=== PATIENT | female | born 1995 | race Caucasian/White ===

== ENCOUNTER 2018-11-05 11:40 | Emergency (ER) | payer SELFPAY, MEDICAID | END 2018-11-05 14:51 | disposition left against medical advice (07) | LOC: FTE 11:40 | DX: Z53.21 Procedure and treatment not carried out due to patient leaving prior to being seen by health care provider (principal) ==

== ENCOUNTER 2019-03-08 01:50 | Outpatient (CLI) | payer SELFPAY | END 2019-03-08 03:50 | disposition home or self-care (01) | LOC: OBT 01:50 → L-D 01:50 → OBT 03:50 | DX: O60.02 Preterm labor without delivery, second trimester (principal); Z3A.25 25 weeks gestation of pregnancy | CPT/HCPCS: 76815; 76817 ==